=== PATIENT | male | born 1955 | race Caucasian/White ===

== ENCOUNTER 2020-04-24 09:04 | Emergency (ER) | payer OTHER ==
[2020-04-24 09:36] VITALS: BP 123/78; PULSE 69; TEMP 98.2; BMI 27.4
--- NOTE | 2020-04-24 10:15 | PDOC ---
*Physical Exam - Vital Signs Last Vital Signs Temp Pulse Resp BP Pulse Ox 98.2 F 69 20 123/78 100 04/24/20 09:05 04/24/20 09:05 04/24/20 09:05 04/24/20 09:05 04/24/20 09:05 Medical Decision Making - Medical Decision Making Pt eloped before MD evaluation. Pt was called in waiting room x3 and looked for pt throughout ED multiple times. Nursing staff aware. Per RME, pt was A/O x3 on evaluation, but EMS reports pt was confused. [facility] called. 04/24/20 10:13 Discharge - Discharge Information Problems reviewed: Yes Clinical Impression/Diagnosis: Confused Disposition: ELOPED - Admission No - Follow up/Referral - Patient Discharge Instructions - Post Discharge Activity
== END 2020-04-24 11:18 | disposition left against medical advice (07) ==
LOC: JER 09:04
DX: R41.0 Disorientation, unspecified (principal)
CPT/HCPCS: 99283-25